=== PATIENT | male | born 1995 | race Caucasian/White ===

== ENCOUNTER 2017-06-13 12:23 | Emergency (ER) | payer BC, OTHER | END 2017-06-13 15:15 | disposition home or self-care (01) | LOC: FTE 12:23 | DX: S62.306A Unspecified fracture of fifth metacarpal bone, right hand, initial encounter for closed fracture (principal); W22.8XXA Striking against or struck by other objects, initial encounter; Y92.9 Unspecified place or not applicable | CPT/HCPCS: 29125; 73130-RT; 99283-25 ==